=== PATIENT | female | born 1990 | race Caucasian/White ===

== ENCOUNTER 2021-05-23 02:23 | Emergency (ER) | payer BC ==
[~2021-05-23] VITALS: Ht 167.6 cm; Wt 59.0 kg
[2021-05-23 02:32] VITALS: BP 114/84
[2021-05-23] MEDS ORDERED: LIDOCAINE HCL/EPINEPHRINE 1%-EPI 1:100,000 20 ML VIAL INFIL ONE (03:00)
[2021-05-23] MEDS ORDERED: ACETAMINOPHEN 325MG TABLET PO ONE (03:00)
[2021-05-23] MEDS ORDERED: TETANUS, DIPHTHERIA, PERTUSSIS VAC/PF 0.5ML (>10YR OLD) IM ONE (03:00)
[2021-05-23] MEDS ORDERED: TOPUD MT (03:48)
== END 2021-05-23 04:38 | disposition home or self-care (01) ==
LOC: ER 02:23
DX: S01.111A Laceration without foreign body of right eyelid and periocular area, initial encounter (principal); W18.49XA Other slipping, tripping and stumbling without falling, initial encounter; Y93.01 Activity, walking, marching and hiking; Y92.480 Sidewalk as the place of occurrence of the external cause
CPT/HCPCS: 12013; 90471; 90715; 99283; J3490; Z7610